=== PATIENT | male | born 1985 | race American Indian/Alaskan Native ===

== ENCOUNTER 2018-06-13 07:51 | Emergency (ER) | payer SELFPAY ==
[2018-06-13 08:18] VITALS: BP 140/79
[2018-06-13] MEDS ORDERED: NACL 0.9% 1000 ML 1,000 ML IV ONE (08:40)
[2018-06-13 08:53] LABS: Bilirubin,Urine NEG (Negative); Blood,Urine NEG (Negative); Color,Urine Yellow (Yellow); Hyaline Casts,Urine 1 /LPF; Mucus,Urine FEW /HPF
[2018-06-13 08:59] LABS: Basophils % (Auto) 0.3 % (0.0-1.8); Eosinophils # (Auto) 0.2 K/mm3 (0.0-0.4); Eosinophils % (Auto) 3.1 % (0.0-4.3); Hemoglobin 12.9 gm/dl (11.8-15.2); Lymphocytes # (Auto) 1.4 K/mm3 (1.2-5.4); Lymphocytes % (Auto) 26.7 % (13.4-35.0); Mean Corpuscular HGB Conc 35 % (32-34); Mean Corpuscular Hemoglobin 29 pg (28-32); Mean Corpuscular Volume 83 fl (84-94); Monocytes # (Auto) 0.8 K/mm3 (0.0-0.8); Monocytes % (Auto) 15.3 % (0.0-7.3); Platelet Count 301 K/mm3 (140-440); Red Blood Count 4.44 M/mm3 (3.65-5.03); Red Cell Distribution Width 14.2 % (13.2-15.2)
[2018-06-13 09:13] LABS: Alanine Aminotransferase 23 units/L (7-56); Albumin 3.4 g/dL (3.9-5); BUN/Creatinine Ratio 15; Blood Urea Nitrogen 15 mg/dL (9-20); Calcium 8.4 mg/dL (8.4-10.2); Hemolysis Index 4
[2018-06-13] MEDS ORDERED: ALUM-MAG HYDROX-SIMETH 200-200-20MG/5ML PO ONE (09:35)
[2018-06-13] MEDS ORDERED: ZOFRAN IV ONE (09:35)
[2018-06-13] MEDS ORDERED: BENTYL PO ONE (09:35)
[2018-06-13] MEDS ORDERED: LIDOCAINE VISCOUS 2% PO ONE (09:35)
--- NOTE | 2018-06-13 09:35 | Emergency Department Report ---
ED N/V/D HPI - General Chief complaint: Abdominal Pain Stated complaint: ABD PAIN/CHEST PAIN Time Seen by Provider: 06/13/18 09:01 Source: patient Mode of arrival: Ambulatory Limitations: No Limitations - History of Present Illness Initial comments: This is a 32-year-old male here reports that he has been having abdominal pain since last with some nausea vomiting in and occasional diarrhea that last time he had diarrhea was last week and now he thinks he is constipated and he took some milk of magnesia and had a normal bowel movement this morning. Patient has history of HIV and he sees Dr. Dodson and said that his last viral load and he is on medication.. He also reports that it might be because he was working in his arms a lot and a day later he felt the pain that felt tight and crampy. Denies any fever or chills. Denies any blood in his stool or vomit. He is able to tolerate liquids. MD complaint: nausea, vomiting, abdominal pain Onset/Timin -: days(s) Description of Vomiting: food contents Description of Diarrhea: green (last week but since then he took milk of magnesia because he thought he was constipated and he had a normal stool this morning) Associated Abdominal Pain: Yes Location: diffuse Radiation: none Severity: mild Pain Scale: 3 Quality: cramping Consistency: intermittent Improves with: none Worsens with: movement Context: other (unknown) Associated Symptoms: nausea/vomiting. denies: myalgias, chest pain, cough, diaphoresis, fever/chills, headaches, loss of appetite, malaise, rash, dysuria, shortness of breath, syncope, weakness - Related Data Home Medications Medication Instructions Recorded Confirmed Last Taken Elviteg/Cob/Emtri/Tenof Alafen 1 each PO QDAY 06/13/18 06/13/18 06/12/18 [Genvoya Tablet] Ibuprofen [Motrin] 400 mg PO Q12H 06/13/18 06/13/18 06/13/18 Melatonin 10 mg PO QPM 06/13/18 06/13/18 Unknown Previous Rx's Medication Instructions Recorded Last Taken Type Dicyclomine [Bentyl] 40 mg PO Q8H 3 Days #9 tablet 06/13/18 Unknown Rx Ondansetron [Zofran Odt] 4 mg PO Q6H PRN #20 tab.rapdis 06/13/18 Unknown Rx Allergies Allergy/AdvReac Type Severity Reaction Status Date / Time No Known Allergies Allergy Unverified 06/13/18 08:17 ED Review of Systems ROS: Stated complaint: ABD PAIN/CHEST PAIN Other details as noted in HPI Constitutional: denies: chills, fever ENT: denies: ear pain, throat pain, congestion Respiratory: denies: cough, shortness of breath, SOB with exertion, SOB at rest , stridor, wheezing Cardiovascular: denies: chest pain, palpitations, edema, syncope, paroxysmal nocturnal dyspnea Gastrointestinal: abdominal pain, nausea, vomiting, diarrhea (1 episode), constipation Genitourinary: denies: urgency, dysuria, hematuria, discharge Musculoskeletal: denies: back pain, joint swelling, arthralgia Skin: denies: rash, lesions Neurological: denies: headache, weakness, paresthesias ED Past Medical Hx - Past Medical History Previous Medical History?: Yes Hx Diabetes: Yes Additional medical history: HIV positive - Surgical History Past Surgical History?: No - Family History Family history: hypertension - Social History Smoking Status: Current Every Day Smoker Substance Use Type: None - Medications Home Medications: Home Medications Medication Instructions Recorded Confirmed Last Taken Type Dicyclomine [Bentyl] 40 mg PO Q8H 3 Days #9 tablet 06/13/18 Unknown Rx Elviteg/Cob/Emtri/Tenof Alafen 1 each PO QDAY 06/13/18 06/13/18 06/12/18 History [Genvoya Tablet] Ibuprofen [Motrin] 400 mg PO Q12H 06/13/18 06/13/18 06/13/18 History Melatonin 10 mg PO QPM 06/13/18 06/13/18 Unknown History Ondansetron [Zofran Odt] 4 mg PO Q6H PRN #20 tab.rapdis 06/13/18 Unknown Rx ED Physical Exam - General Limitations: No Limitations General appearance: alert, in no apparent distress - Head Head exam: Present: atraumatic, normocephalic, normal inspection - Eye Eye exam: Present: normal appearance, PERRL, EOMI. Absent: conjunctival injection Pupils: Present: normal accommodation - ENT ENT exam: Present: normal exam, normal orophraynx, mucous membranes moist - Neck Neck exam: Present: normal inspection, full ROM. Absent: tenderness, lymphadenopathy - Respiratory Respiratory exam: Present: normal lung sounds bilaterally. Absent: respiratory distress, chest wall tenderness - Cardiovascular Cardiovascular Exam: Present: regular rate, normal rhythm, normal heart sounds. Absent: systolic murmur, diastolic murmur - GI/Abdominal GI/Abdominal exam: Present: soft, normal bowel sounds. Absent: distended, tenderness, guarding, rebound, rigid, organomegaly, mass, bruit, pulsatile mass , hernia - Extremities Exam Extremities exam: Present: normal inspection, full ROM, normal capillary refill , other (No cce. + 2 pulses in all extremities, no neurovascular compromise). Absent: tenderness, pedal edema, joint swelling, calf tenderness - Back Exam Back exam: Present: normal inspection, full ROM, other (ambulates without any difficulties). Absent: tenderness, CVA tenderness (R), CVA tenderness (L), muscle spasm, paraspinal tenderness, vertebral tenderness, rash noted - Neurological Exam Neurological exam: Present: alert, oriented X3, normal gait, reflexes normal. Absent: motor sensory deficit - Psychiatric Psychiatric exam: Present: normal affect, normal mood - Skin Skin exam: Present: warm, dry, intact, normal color. Absent: rash ED Course Vital Signs 06/13/18 08:12 Temperature 98.1 F Pulse Rate 87 Respiratory 16 Rate Blood Pressure 140/79 O2 Sat by Pulse 100 Oximetry - Reevaluation(s) Reevaluation #1: 06/13/18 12:47 She received 1 L normal saline in the emergency room, Zofran 8 mg IV, Bentyl 40 mg by mouth, Maalox 15 mL and lidocaine 15 mL by mouth for relief of pain. No episode of diarrhea or vomiting in emergency room and his nausea has resolved. ED Medical Decision Making - Lab Data Result diagrams: 06/13/18 08:50 06/13/18 08:50 Lab Results 06/13/18 06/13/18 06/13/18 Range/Units 08:43 08:50 08:50 WBC 5.3 (4.5-11.0) K/mm3 RBC 4.44 (3.65-5.03) M/mm3 Hgb 12.9 (11.8-15.2) gm/dl Hct 37.0 (35.5-45.6) % MCV 83 L (84-94) fl MCH 29 (28-32) pg MCHC 35 H (32-34) % RDW 14.2 (13.2-15.2) % Plt Count 301 (140-440) K/mm3 Lymph % (Auto) 26.7 (13.4-35.0) % Jones % (Auto) 15.3 H (0.0-7.3) % Eos % (Auto) 3.1 (0.0-4.3) % Baso % (Auto) 0.3 (0.0-1.8) % Lymph # 1.4 (1.2-5.4) K/mm3 Jones # 0.8 (0.0-0.8) K/mm3 Eos # 0.2 (0.0-0.4) K/mm3 Baso # 0.0 (0.0-0.1) K/mm3 Seg Neutrophils % 54.6 (40.0-70.0) % Seg Neutrophils # 2.9 (1.8-7.7) K/mm3 Sodium 136 L (137-145) mmol/L Potassium 4.0 (3.6-5.0) mmol/L Chloride 98.3 (98-107) mmol/L Carbon Dioxide 27 (22-30) mmol/L Anion Gap 15 mmol/L BUN 15 (9-20) mg/dL Creatinine 1.0 (0.8-1.5) mg/dL Estimated GFR > 60 ml/min BUN/Creatinine Ratio 15 % Glucose 133 H (75-100) mg/dL Calcium 8.4 (8.4-10.2) mg/dL Total Bilirubin 0.20 (0.1-1.2) mg/dL AST 26 (5-40) units/L ALT 23 (7-56) units/L Alkaline Phosphatase 92 (35-129) units/L Total Protein 7.7 (6.3-8.2) g/dL Albumin 3.4 L (3.9-5) g/dL Albumin/Globulin Ratio 0.8 % Lipase (13-60) units/L Urine Color Yellow (Yellow) Urine Turbidity Clear (Clear) Urine pH 5.0 (5.0-7.0) Ur Specific [place] 1.039 H (1.003-1.030) Urine Protein 30 mg/dl (Negative) mg/dL Urine Glucose (UA) Neg (Negative) mg/dL Urine Ketones Tr (Negative) mg/dL Urine Blood Neg (Negative) Urine Nitrite Neg (Negative) Urine Bilirubin Neg (Negative) Urine Urobilinogen 2.0 (<2.0) mg/dL Ur Leukocyte Esterase Neg (Negative) Urine WBC (Auto) 2.0 (0.0-6.0) /HPF Urine RBC (Auto) 3.0 (0.0-6.0) /HPF U Epithel Cells (Auto) 1.0 (0-13.0) /HPF Hyaline Casts 1 /LPF Urine Mucus Few /HPF 06/13/18 Range/Units 08:50 WBC (4.5-11.0) K/mm3 RBC (3.65-5.03) M/mm3 Hgb (11.8-15.2) gm/dl Hct (35.5-45.6) % MCV (84-94) fl MCH (28-32) pg MCHC (32-34) % RDW (13.2-15.2) % Plt Count (140-440) K/mm3 Lymph % (Auto) (13.4-35.0) % Jones % (Auto) (0.0-7.3) % Eos % (Auto) (0.0-4.3) % Baso % (Auto) (0.0-1.8) % Lymph # (1.2-5.4) K/mm3 Jones # (0.0-0.8) K/mm3 Eos # (0.0-0.4) K/mm3 Baso # (0.0-0.1) K/mm3 Seg Neutrophils % (40.0-70.0) % Seg Neutrophils # (1.8-7.7) K/mm3 Sodium (137-145) mmol/L Potassium (3.6-5.0) mmol/L Chloride (98-107) mmol/L Carbon Dioxide (22-30) mmol/L Anion Gap mmol/L BUN (9-20) mg/dL Creatinine (0.8-1.5) mg/dL Estimated GFR ml/min BUN/Creatinine Ratio % Glucose (75-100) mg/dL Calcium (8.4-10.2) mg/dL Total Bilirubin (0.1-1.2) mg/dL AST (5-40) units/L ALT (7-56) units/L Alkaline Phosphatase (35-129) units/L Total Protein (6.3-8.2) g/dL Albumin (3.9-5) g/dL Albumin/Globulin Ratio % Lipase 35 (13-60) units/L Urine Color (Yellow) Urine Turbidity (Clear) Urine pH (5.0-7.0) Ur Specific [place] (1.003-1.030) Urine Protein (Negative) mg/dL Urine Glucose (UA) (Negative) mg/dL Urine Ketones (Negative) mg/dL Urine Blood (Negative) Urine Nitrite (Negative) Urine Bilirubin (Negative) Urine Urobilinogen (<2.0) mg/dL Ur Leukocyte Esterase (Negative) Urine WBC (Auto) (0.0-6.0) /HPF Urine RBC (Auto) (0.0-6.0) /HPF U Epithel Cells (Auto) (0-13.0) /HPF Hyaline Casts /LPF Urine Mucus /HPF - EKG Data -: EKG Interpreted by Me (attending physician) EKG shows normal: sinus rhythm Rate: normal (60 bpm) - EKG Data Interpretation: no acute changes, normal EKG - Radiology Data Radiology results: report reviewed Abdominal x-ray 2 views reveals no acute findings. This was dictated by radiologist and report reviewed by myself .See report below Findings [address] [address] XRay Report Signed Patient: JULIO C SANCHEZ MR#: [id number] : 1985 Acct:[id number] Age/Sex: 32 / M ADM Date: 06/13/18 Loc: ED Attending Dr: Ordering Physician: CONSTANCE NELSON Date of Service: 06/13/18 Procedure(s): XR abdomen 2V Accession Number(s): [id number] cc: CONSTANCE NELSON Fluoro Time In Minutes: ABDOMEN, 2 views: History: Abdominal pain and constipation. There is no evidence of free air beneath the diaphragms. The gas pattern within the abdomen is unremarkable. There is no evidence of bowel dilatation, significant air-fluid levels, or pathologic calcifications. Organ shadows are unremarkable. IMPRESSION: Unremarkable abdomen. Transcribed By: TTR Dictated By: DEONTE TOPETE JR, MD Electronically Authenticated By: DEONTE TOPETE JR, MD Signed Date/Time: 06/13/181008 DD/ 08 TD/TT: 06/13/181008 - Medical Decision Making This is a 32-year-old male reports abdominal pain with limited diarrhea and some nausea and vomiting and which was very limited. He came to the ER today he said he was feeling better but he said he wanted to be checked out. Patient is HIV positive and been followed by Dr. Lissa Dodson. Patient was seen and evaluated by myself. Abdominal exam is normal, back exam is normal. He is stable, vital signs are stable he is afebrile. Patient had abdominal two-view x-ray done which was dictated by radiologist and report reviewed by myself and no abnormality found. Patient was thinking that he is constipated. Patient had CBC, CMP, urinalysis and lipase done which were all normal. Patient had EKG done which showed normal sinus rhythm at 60 bpm with no acute findings. These are poor were relayed to patient and he voiced understanding. Abdominal pain-patient given Ativan lidocaine 15 mL, Maalox 15 mL and Benadryl 40 mg by mouth which relieved this pain and he said he is feeling a lot better. She will be discharged home on Bentyl Nausea and vomiting with diarrhea-patient given 1 L of normal saline, Zofran 8 mg IV and his symptoms has relief. She will be discharged home on Zofran Pt symptoms are episodic and has resolved limited. He is stable and reports that he is feeling a lot better. Vital signs are stable he is afebrile and pain has been relieved. I discussed the patient that he needs to follow up with his infectious disease doctor and his primary care physician Dr. huang tomorrow discussion appointment and he voiced understanding and I also informed him that if his symptoms return to return to the emergency room. - Differential Diagnosis liver disease, pancreatitisBowel OBS, enteritis, constipation, MSK pain Critical care attestation.: If time is entered above; I have spent that time in minutes in the direct care of this critically ill patient, excluding procedure time. ED Disposition Clinical Impression: Nausea vomiting and diarrhea Abdominal pain Qualifiers: Abdominal location: generalized Qualified Code(s): R10.84 - Generalized abdominal pain Disposition: - TO HOME OR SELFCARE Is pt being admited?: No Does the pt Need Aspirin: No Condition: Stable Instructions: Abdominal Pain (ED), Acute Nausea and Vomiting (ED) Additional Instructions: Please follow up again to infectious disease doctor and he primary care doctor and call tomorrow to schedule an appointment. Eat bland diet to include banana, rice, applesauce and toast Please avoid carbonated beverages and spicy food If the symptoms worsen, return to the emergency room [facility] Prescriptions: Dicyclomine [Bentyl] 40 mg PO Q8H 3 Days #9 tablet Ondansetron [Zofran Odt] 4 mg PO Q6H PRN #20 tab.rapdis PRN Reason: Nausea And Vomiting Referrals: PRIMARY CARE, [Primary Care Provider] - 06/14/18 your infectious disease, physician [Other] - 06/14/18 Forms: Work/School Release Form(ED)
--- NOTE | 2018-06-13 10:21 | XRay Report ---
ABDOMEN, 2 views: History: Abdominal pain and constipation. There is no evidence of free air beneath the diaphragms. The gas pattern within the abdomen is unremarkable. There is no evidence of bowel dilatation, significant air-fluid levels, or pathologic calcifications. Organ shadows are unremarkable. IMPRESSION: Unremarkable abdomen.
== END 2018-06-13 13:14 | disposition home or self-care (01) ==
LOC: ED 07:51
DX: R10.84 Generalized abdominal pain (principal); R11.2 Nausea with vomiting, unspecified; R19.7 Diarrhea, unspecified; E11.9 Type 2 diabetes mellitus without complications; F17.200 Nicotine dependence, unspecified, uncomplicated
CPT/HCPCS: 36415; 74019; 80053; 81001; 83690; 85025; 93005; 93010; 96361; 96374; 99284; J2405; J7030